=== PATIENT | female | born 1955 ===

== ENCOUNTER 2023-01-26 12:45 | Inpatient (IN) | payer OTHER ==
[~2023-01-26] VITALS: Ht 162.6 cm; Wt 40.8 kg
[2023-01-29] MEDS ORDERED: ALPRAZOLAM0.5 MG (08:13)
[2023-01-29] MEDS ORDERED: LISINOPRIL10 MG (08:14)
[2023-01-29] MEDS ORDERED: ALENDRONATE SOD70 MG (08:14)
[2023-01-29] MEDS ORDERED: TOLTERODINE TART4 MG (08:14)
[2023-01-29] MEDS ORDERED: TRAZODONE HCL150 MG (08:14)
[2023-01-29] MEDS ORDERED: LEVO-T25 MCG (08:14)
[2023-01-29] MEDS ORDERED: ATORVASTATIN CA20 MG (08:14)
[2023-01-29] MEDS ORDERED: GLIPIZIDE ER5 MG (08:14)
[2023-01-29 13:07] LABS: HEMATOCRIT 34.9 % (36.0-45.00); HEMOGLOBIN 11.1 g/dL (12.0-15.00); MEAN CELL VOLUME 80.5 fL (80.00-100.00); MEAN CORPUSCULAR HEMOGLOBIN 25.7 pg (27.00-32.0); MEAN CORPUSCULAR HGB CONC 31.9 g/dl (32.0-36.0); PLATELET COUNT 279 K/uL (150-450); RED BLOOD COUNT 4.34 M/uL (4.00-6.00)
[2023-01-29 13:09] LABS: RED CELL DISTRIBUTION WIDTH 25.5 % (11.5-14.5)
[2023-01-29 13:28] LABS: CALCIUM 9.3 mg/dL (8.5-10.1); CREATININE SERUM 0.52 mg/dL (0.55-1.02); GFR 117.62; POTASSIUM 3.21 mEq/L (3.5-5.1)
[2023-01-29 23:49] LABS: CALCIUM 9.8 mg/dL (8.5-10.1); GFR 112.61; POTASSIUM 3.85 mEq/L (3.5-5.1)
[2023-01-29 23:56] LABS: CREATININE SERUM 0.54 mg/dL (0.55-1.02)
[2023-01-30 09:47] LABS: HEMATOCRIT 31.4 % (36.0-45.00); HEMOGLOBIN 10.3 g/dL (12.0-15.00); MEAN CELL VOLUME 79.8 fL (80.00-100.00); MEAN CORPUSCULAR HEMOGLOBIN 26.2 pg (27.00-32.0); MEAN CORPUSCULAR HGB CONC 32.9 g/dl (32.0-36.0); PLATELET COUNT 260 K/uL (150-450); RED BLOOD COUNT 3.93 M/uL (4.00-6.00)
[2023-01-30 09:49] LABS: RED CELL DISTRIBUTION WIDTH 25.5 % (11.5-14.5)
[2023-01-30 15:44] LABS: CALCIUM 10.2 mg/dL (8.5-10.1); CREATININE SERUM 0.46 mg/dL (0.55-1.02); GFR 135.49; POTASSIUM 3.85 mEq/L (3.5-5.1)
[2023-01-31 21:52] LABS: ALBUMIN 3.2 gm/dL (3.4-5.0); BILIRUBIN TOTAL 0.74 mg/dL (0.3-1.2); CALCIUM 10.7 mg/dL (8.5-10.1); CREATININE SERUM 0.46 mg/dL (0.55-1.02); GFR 135.49; GLOBULINA 2.8 G/DL (2.4-3.5); MAGNESIUM 1.7 mg/dL (1.8-2.4); PHOSPHOROUS 2.4 mg/dL (2.5-4.9); POTASSIUM 3.39 mEq/L (3.5-5.1)
== END 2023-02-01 11:30 | disposition home or self-care (01) | DRG 740 ==
LOC: O/R 01-29 05:10 → OB/GYN 01-29 07:00
PROVIDERS: Obstetrics & Gynecology; ADMIT Obstetrics & Gynecology Gynecologic Oncology; ATTEND Obstetrics & Gynecology Gynecologic Oncology
PROC: 07BD0ZZ Excision of Aortic Lymphatic, Open Approach (ICD-10-PCS; 2023-01-29)
PROC: 07BC0ZZ Excision of Pelvis Lymphatic, Open Approach (ICD-10-PCS; 2023-01-29)
PROC: 0DBU0ZZ Excision of Omentum, Open Approach (ICD-10-PCS; 2023-01-29)
PROC: 0UT20ZZ Resection of Bilateral Ovaries, Open Approach (ICD-10-PCS; 2023-01-29)
PROC: 0UT70ZZ Resection of Bilateral Fallopian Tubes, Open Approach (ICD-10-PCS; 2023-01-29)
PROC: 0UT90ZZ Resection of Uterus, Open Approach (ICD-10-PCS; principal; 2023-01-29 07:00)
DX: C54.1 Malignant neoplasm of endometrium (principal); C77.5 Secondary and unspecified malignant neoplasm of intrapelvic lymph nodes; C79.89 Secondary malignant neoplasm of other specified sites; Z20.822 Contact with and (suspected) exposure to COVID-19

== ENCOUNTER 2024-03-15 15:23 | Inpatient (IN) | payer OTHER ==
[~2024-03-15] VITALS: Ht 152.4 cm; Wt 40.8 kg
[~2024-03-15 15:23] MED LIST: ALENDRONATE SOD70 MG; ALPRAZOLAM0.5 MG; ATORVASTATIN CA20 MG; GLIPIZIDE ER5 MG; LEVO-T25 MCG; LISINOPRIL10 MG; TOLTERODINE TART4 MG; TRAZODONE HCL150 MG
[2024-03-15] MEDS ORDERED: IPRATROPIUM/ALBUTEROL SULFATE 3 ML AMPUL.NEB IH SCH (18:32)
[2024-03-15] MEDS ORDERED: KETOROLAC TROMETHAMINE 30 MG VIAL IV STA (18:36)
[2024-03-15] MEDS ORDERED: 0.9 % SODIUM CHLORIDE 1,000 ML IV STA (18:36)
[2024-03-15] MEDS ORDERED: MORPHINE SULFATE 4 MG/ML VIAL IV STA (18:37)
[2024-03-15 19:50] LABS: HEMATOCRIT 33.2 % (36.0-45.00); HEMOGLOBIN 10.7 g/dL (12.0-15.00); MEAN CORPUSCULAR HEMOGLOBIN 26.2 pg (27.00-32.0); MEAN CORPUSCULAR HGB CONC 32.3 g/dl (32.0-36.0); PLATELET COUNT 559 K/uL (150-450); RED BLOOD COUNT 4.09 M/uL (4.00-6.00)
[2024-03-15 19:54] LABS: RED CELL DISTRIBUTION WIDTH 16.8 % (11.5-14.5)
[2024-03-15 20:26] LABS: ALBUMIN 2.3 gm/dL (3.4-5.0); BILIRUBIN TOTAL 0.42 mg/dL (0.3-1.2); CALCIUM 10.3 mg/dL (8.5-10.1); CREATININE SERUM 0.41 mg/dL (0.55-1.02); GFR 153.81; GLOBULINA 3.7 G/DL (2.4-3.5); POTASSIUM 4.56 mEq/L (3.5-5.1)
[2024-03-15] MEDS ORDERED: MORPHINE SULFATE 2 MG/ML CARTRIDGE IV PRN (21:15)
[2024-03-15] MEDS ORDERED: 0.9 % SODIUM CHLORIDE 1,000 ML IV SCH (21:15)
[2024-03-15 21:48] LABS: PH,URINE 7.5 (5.0-8.0); URINE APPEARANCE Clear; URINE BILIRRUBIN Negative (NEGATIVE); URINE BLOOD Small; URINE COLOR Yellow; URINE GLUCOSE Negative (NEGATIVE); URINE KETONE Negative (NEGATIVE); URINE LEUKOCYTE Negative; URINE NITRATE Negative; URINE PROTEIN Trace (NEGATIVE)
[2024-03-15 21:52] LABS: URINE BACTERIA 75.8 uL (0.0-1933); URINE EPITHELIAL CELLS 2.3 uL (0.0-38.8); URINE RBC 64.5 uL (0.0-20.8); URINE WBC 13.9 uL (0.0-23.2)
[2024-03-15 21:57] LABS: URINE CAST 0.14 uL (0.0-1.40)
[2024-03-15] MEDS ORDERED: hydrALAZINE HCL 20 MG VIAL IV PRN (23:30)
[2024-03-15 23:37] VITALS: BP 190/94; O2SAT 95
[2024-03-16] MEDS ORDERED: PIPERACILLIN/TAZOBACTAM SODIUM 3.375 GM in DEXTROSE 5 % IN WATER 100 ML IV SCH
[2024-03-16 01:20] VITALS: BP 107/60; O2SAT 99
[2024-03-16 03:14] VITALS: BP 122/55
[2024-03-16 08:37] VITALS: BP 118/50
[2024-03-16] MEDS ORDERED: PANTOPRAZOLE SODIUM 40 MG/VIAL VIAL IV SCH (09:00)
[2024-03-16 12:17] LABS: ABG PH 7.462 (7.35-7.45); ABG PO2 67.8 mmHg (80-100); ABG pCO2 36.9 mmHg (35-45); BASE EXCESS 2.2 mmol/l; BICARBONATE 25.8 mmol/l (23-25); SaO2 94.5 %; Tco2 26.9 mmol/l
[2024-03-16 12:21] LABS: allen test SATISFACTORY; o2 21 %; puncture site RADIAL RIGHT
[2024-03-16 17:43] VITALS: BP 161/75; O2SAT 99
[2024-03-16] MEDS ORDERED: AMPICILLIN SODIUM/SULBACTAM NA 3,000 MG VIAL IV SCH (18:00)
[2024-03-16] MEDS ORDERED: LORazepam 1 MG TABLET PO SCH (21:00)
[2024-03-17 02:30] VITALS: BP 185/84; O2SAT 92
[2024-03-17 08:37] VITALS: BP 169/72
[2024-03-17 21:31] VITALS: BP 186/77; O2SAT 98
[2024-03-17 23:02] VITALS: BP 177/81
[2024-03-18 01:51] VITALS: BP 133/66
[2024-03-18 06:15] LABS: HEMATOCRIT 27.2 % (36.0-45.00); MEAN CELL VOLUME 81.2 fL (80.00-100.00); MEAN CORPUSCULAR HEMOGLOBIN 26.8 pg (27.00-32.0); MEAN CORPUSCULAR HGB CONC 32.9 g/dl (32.0-36.0); PLATELET COUNT 426 K/uL (150-450); RED BLOOD COUNT 3.35 M/uL (4.00-6.00); RED CELL DISTRIBUTION WIDTH 16.2 % (11.5-14.5)
[2024-03-18 09:25] VITALS: BP 140/69; O2SAT 97
[2024-03-18 18:04] VITALS: BP 160/80; O2SAT 97
== END 2024-03-18 20:45 | disposition home or self-care (01) | DRG 755 ==
LOC: ER 15:23 → MEDJ 22:28
PROVIDERS: ADMIT Internal Medicine; ATTEND Internal Medicine
PROC: 8E0ZXY6 Isolation (ICD-10-PCS; principal; 2024-03-15)
PROC: 4A12X4Z Monitoring of Cardiac Electrical Activity, External Approach (ICD-10-PCS; 2024-03-15)
DX: C54.1 Malignant neoplasm of endometrium (principal); C78.00 Secondary malignant neoplasm of unspecified lung; C80.0 Disseminated malignant neoplasm, unspecified; R65.10 Systemic inflammatory response syndrome (SIRS) of non-infectious origin without acute organ dysfunction; Z68.1 Body mass index [BMI] 19.9 or less, adult; G89.3 Neoplasm related pain (acute) (chronic); D63.0 Anemia in neoplastic disease; D50.8 Other iron deficiency anemias; E86.0 Dehydration; R06.03 Acute respiratory distress; R63.0 Anorexia; D72.829 Elevated white blood cell count, unspecified; F79 Unspecified intellectual disabilities; I10 Essential (primary) hypertension; E11.9 Type 2 diabetes mellitus without complications; Z79.84 Long term (current) use of oral hypoglycemic drugs